=== PATIENT | female | born 1975 | race Two or more races ===

== ENCOUNTER → 2024-06-21 | Outpatient (CLI) | payer BC, SELFPAY ==
--- NOTE | 2024-06-21 09:27 | XR_ITS ---
Examination: PA lateral chest 2 views TECHNIQUE: Upright PA lateral chest 2 views Exam date and time: June 21, 2024 0955 hours Comparison October 01, 2021 INDICATIONS: Coughing right-sided chest pain beginning 4 days ago, diagnosis hypertension asthma FINDINGS: Normal heart size Lungs are clear Moderate osteopenia IMPRESSION: No active disease
== END | disposition home or self-care (01) ==
LOC: CDIM 09:22
PROVIDERS: PCP Internal Medicine; Referring Provider Internal Medicine; Visit Provider Internal Medicine
DX: R05.9 Cough, unspecified (principal)
CPT/HCPCS: 71046

== ENCOUNTER → 2024-07-05 | Outpatient (CLI) | payer BC, SELFPAY ==
[2024-07-05 08:19] LABS: Collection Type, Urine Clean Catch
[2024-07-05 08:53] LABS: Bacteria,Urine Rare; Bilirubin,Urine Negative (Negative); Blood,Urine 1+ (Negative); Color,Urine Yellow (Lt Yel-Yel); Glucose, Urine Negative (Negative); Hyaline Casts,Urine < 1 /hpf (0-1); Ketones,Urine Negative (Negative); Leukocyte Esterase,Urine Negative (Negative); Nitrite,Urine Negative (Negative); Protein,Urine 1+ (Neg - Trace); RBC,Urine 8 /hpf (0-3); Squamous Epithelial Cell,Urine 5 /hpf (0-5); Urobilinogen,Urine Negative mg/dL (0.0-1.0); WBC,Urine 5 /hpf (0-5)
[2024-07-05 08:59] LABS: Glucose Estimated Average 111 mg/dL (80-131); Hemoglobin A1C 5.5 % Hgb (4.8-6.0)
[2024-07-05 09:01] LABS: Clarity,Urine Hazy (Clear/Hazy)
[2024-07-05 09:07] LABS: Basophils % (Auto) 1 % (0-2.5); Eosinophils # (Auto) 0.1 Thou/mm3 (0.0-0.5); Eosinophils % (Auto) 2 % (0-10); Hematocrit 41.9 % (36.0-46.0); Hemoglobin 13.9 g/dL (12.0-16.0); Immature Granulocytes % (Auto) 0 % (0-0); Immature Granulocytes Auto 0.02 Thou/mm3 (0.00-0.00); Lymphocytes # (Auto) 1.3 Thou/mm3 (1.0-4.8); Lymphocytes % (Auto) 21 % (10-50); Mean Corpuscular HGB Conc 33.2 g/dl (31.0-37.0); Mean Corpuscular Hemoglobin 29.6 pg (25.0-35.0); Mean Corpuscular Volume 89 fL (80-100); Monocytes # (Auto) 1.2 Thou/mm3 (0.0-0.8); Monocytes % (Auto) 20 % (0-12); Neutrophils # (Auto) 3.5 Thou/mm3 (1.8-7.7); Neutrophils % (Auto) 57 % (37-80); Nucleated Red Blood Cell % 0 /100 WBC (0); Platelet Count 314 Thou/mm3 (140-440); RDW Standard Deviation 46.8 fL (36.4-46.3); White Blood Count 6.1 Thou/mm3 (3.6-11.0)
[2024-07-05 09:14] LABS: Alanine Aminotransferase 70 U/L (10-49); Albumin, Serum 4.9 gm/dL (3.5-5.0); Albumin/Globulin Ratio 1.8 (1.2-2.2); Alkaline Phosphatase 92 U/L (46-116); Anion Gap 9 (7-16); Aspartate Amino Transferase 43 U/L (0-34); BUN/Creatinine Ratio 23 Ratio (12-20); Bilirubin,Total 0.4 mg/dL (0.3-1.2); Blood Urea Nitrogen 21 mg/dL (9-23); Calcium 9.7 mg/dL (8.3-10.6); Calcium (Corrected) 9.7 mg/dL (8.5-10.1); Carbon Dioxide 28.9 mMol/L (20.0-31.0); Cardiac Risk Estimate 2.6 RATIO (3.7-5.6); Chloride 102 mMol/L (98-107); Cholesterol 171 mg/dL (132-200); Creatinine (Component) 0.9 mg/dL (0.6-1.3); Free T4 (Free Thyroxine) 1.71 ng/dL (0.89-1.76); Globulin 2.7 gm/dL (2.3-3.5); Glucose 107 mg/dL (74-106); HDL Cholesterol 65 mg/dL (40-60); LDL Cholesterol,Calculated 89 mg/dL (0-130); Osmolality,Calculated 282 (275-295); Potassium 3.7 mMol/L (3.4-5.1); Sodium 140 mMol/L (136-145); Thyroid Stimulating Hormone 5.57 uIU/mL (0.55-4.78); Total Protein 7.6 gm/dL (5.7-8.2); Triglycerides 87 mg/dL (30-150); Uric Acid 4.4 mg/dL (3.1-7.8); eGFR > 60 See Note
[2024-07-05 09:28] LABS: Vitamin B12 675 pg/mL (211-911); Vitamin D 25 Hydroxy Total 15.3 ng/mL (7.3-40.2)
== END | disposition home or self-care (01) ==
LOC: COPL 07:45
PROVIDERS: PCP Internal Medicine; Referring Provider Internal Medicine; Visit Provider Internal Medicine
DX: Z00.00 Encounter for general adult medical examination without abnormal findings (principal); I10 Essential (primary) hypertension; E03.9 Hypothyroidism, unspecified
CPT/HCPCS: 36415; 80053; 80061; 81001; 82306; 82607; 83036; 84439; 84443; 84550; 85025

== ENCOUNTER → 2024-11-07 | Outpatient (CLI) | payer BC, SELFPAY ==
--- NOTE | 2024-11-07 | XR_ITS ---
Examination:Right hip AP, lateral, AP pelvis 3 views Technique: Hip AP lateral, AP pelvis, 3 views Exam date and time:November 07, 2024 1231 hours INDICATIONS: Injury to the right hip 7 months ago persistent right hip pain. FINDINGS: Mild bilateral hip osteoarthritis Greater trochanteric bursitis both hips No hip or pelvic fracture IMPRESSION: Mild bilateral hip osteoarthritis Greater trochanteric bursitis both hips.
--- NOTE | 2024-11-07 | XR_ITS ---
Examination: Knee, right , 3 views Technique: Knee AP, lateral, oblique 3 views Date and time of exam: November 07, 2024 1231 hours INDICATIONS: Injury to the knee 7 months ago, knee pain. FINDINGS: Mild to moderate right knee tricompartment osteoarthritis No fracture or dislocation IMPRESSION: No fracture or dislocation
--- NOTE | 2024-11-07 | XR_ITS ---
Examination: Lumbar spine, 5 views Technique: Lumbar spine AP, lateral, coned lateral lower lumbar spine, bilateral obliques 5 views Exam date and time: November 07, 2024 1231 hours INDICATIONS: Low back pain post injury 7 months ago FINDINGS: Adequate alignment lumbar vertebral bodies No lumbar fracture Moderate lumbar spondylosis Chronic osteoporotic compression T12 T11 Diffuse lumbar disc narrowing, advanced L4-L5 IMPRESSION: Diffuse lumbar degenerative disc disease, advanced L4-L5
== END | disposition home or self-care (01) ==
LOC: CDIM 12:01
PROVIDERS: PCP Internal Medicine; Referring Provider Internal Medicine; Visit Provider Internal Medicine
DX: M25.561 Pain in right knee (principal); M16.0 Bilateral primary osteoarthritis of hip; M70.62 Trochanteric bursitis, left hip; M70.61 Trochanteric bursitis, right hip; M51.360 Other intervertebral disc degeneration, lumbar region with discogenic back pain only; S89.91XS Unspecified injury of right lower leg, sequela; X58.XXXS Exposure to other specified factors, sequela
CPT/HCPCS: 72110; 73502; 73562

== ENCOUNTER → 2025-04-24 | Outpatient (CLI) | payer BC, SELFPAY ==
[2025-04-24 07:52] LABS: Collection Type, Urine Clean Catch
[2025-04-24 08:23] LABS: Basophils # (Auto) 0.1 Thou/mm3 (0.0-0.2); Basophils % (Auto) 1 % (0-2.5); Eosinophils # (Auto) 0.3 Thou/mm3 (0.0-0.5); Eosinophils % (Auto) 3 % (0-10); Hematocrit 39.9 % (36.0-46.0); Hemoglobin 13.3 g/dL (12.0-16.0); Immature Granulocytes Auto 0.08 Thou/mm3 (0.00-0.00); Lymphocytes # (Auto) 2.8 Thou/mm3 (1.0-4.8); Lymphocytes % (Auto) 24 % (10-50); Mean Corpuscular HGB Conc 33.3 g/dl (31.0-37.0); Mean Corpuscular Hemoglobin 29.8 pg (25.0-35.0); Mean Corpuscular Volume 90 fL (80-100); Monocytes # (Auto) 1.0 Thou/mm3 (0.0-0.8); Monocytes % (Auto) 9 % (0-12); Neutrophils # (Auto) 7.4 Thou/mm3 (1.8-7.7); Neutrophils % (Auto) 63 % (37-80); Nucleated Red Blood Cell # 0.00 Thou/mm3 (0.00-0.00); Nucleated Red Blood Cell % 0 /100 WBC (0); Platelet Count 343 Thou/mm3 (140-440); RDW Standard Deviation 47.5 fL (36.4-46.3); Red Blood Count 4.46 Miln/mm3 (4.00-5.20); White Blood Count 11.7 Thou/mm3 (3.6-11.0)
[2025-04-24 08:28] LABS: Glucose Estimated Average 100 mg/dL (80-131); Hemoglobin A1C 5.1 % Hgb (4.8-6.0)
[2025-04-24 08:31] LABS: Bacteria,Urine Rare; Bilirubin,Urine Negative (Negative); Blood,Urine 1+ (Negative); Clarity,Urine Clear (Clear/Hazy); Color,Urine Yellow (Lt Yel-Yel); Glucose, Urine Negative (Negative); Ketones,Urine Negative (Negative); Leukocyte Esterase,Urine Negative (Negative); Nitrite,Urine Negative (Negative); PH,Urine 6.0 (5.0-7.0); Protein,Urine Trace (Neg - Trace); RBC,Urine 1 /hpf (0-3); Specific Gravity,Urine 1.035 (1.001-1.035); Squamous Epithelial Cell,Urine 5 /hpf (0-5); Urobilinogen,Urine Negative mg/dL (0.0-1.0); WBC,Urine 1 /hpf (0-5)
[2025-04-24 08:35] LABS: Alanine Aminotransferase 16 U/L (10-49); Albumin, Serum 4.7 gm/dL (3.5-5.0); Albumin/Globulin Ratio 2.5 (1.2-2.2); Alkaline Phosphatase 57 U/L (46-116); Anion Gap 9 (7-16); Aspartate Amino Transferase 19 U/L (0-34); BUN/Creatinine Ratio 22 Ratio (12-20); Bilirubin,Total 0.4 mg/dL (0.3-1.2); Blood Urea Nitrogen 20 mg/dL (9-23); Calcium 8.9 mg/dL (8.3-10.6); Calcium (Corrected) 8.9 mg/dL (8.5-10.1); Carbon Dioxide 27.3 mMol/L (20.0-31.0); Cardiac Risk Estimate 3.0 RATIO (3.7-5.6); Chloride 105 mMol/L (98-107); Cholesterol 197 mg/dL (132-200); Creatinine (Component) 0.9 mg/dL (0.6-1.3); Free T4 (Free Thyroxine) 1.22 ng/dL (0.89-1.76); Globulin 1.9 gm/dL (2.3-3.5); Glucose 88 mg/dL (74-106); HDL Cholesterol 65 mg/dL (40-60); LDL Cholesterol,Calculated 113 mg/dL (0-130); Osmolality,Calculated 282 (275-295); Potassium 4.2 mMol/L (3.4-5.1); Sodium 141 mMol/L (136-145); Thyroid Stimulating Hormone 61.89 uIU/mL (0.55-4.78); Total Protein 6.6 gm/dL (5.7-8.2); Triglycerides 95 mg/dL (30-150); Uric Acid 4.5 mg/dL (3.1-7.8); eGFR > 60 See Note
[2025-04-24 08:39] LABS: Follicle Stimulating Hormone 5.81 mIU/mL (See Note); Vitamin B12 846 pg/mL (211-911); Vitamin D 25 Hydroxy Total 17.5 ng/mL (7.3-40.2)
[2025-05-05 07:12] LABS: Estrogen, Total, Serum* 152 pg/mL; Luteinizing Hormone* 2.4 mIU/mL; Progesterone,LC/MS* 5.4 ng/mL
== END | disposition home or self-care (01) ==
LOC: COPL 07:19
PROVIDERS: PCP Internal Medicine; Referring Provider Internal Medicine; Visit Provider Internal Medicine
DX: Z00.00 Encounter for general adult medical examination without abnormal findings (principal); I10 Essential (primary) hypertension; R73.9 Hyperglycemia, unspecified; E03.9 Hypothyroidism, unspecified; E78.5 Hyperlipidemia, unspecified; E55.9 Vitamin D deficiency, unspecified; D51.0 Vitamin B12 deficiency anemia due to intrinsic factor deficiency; R87.1 Abnormal level of hormones in specimens from female genital organs
CPT/HCPCS: 36415; 80053; 80061; 81001; 82306; 82607; 82672; 83001; 83002; 83036; 84144; 84439; 84443; 84550; 85025